=== PATIENT | female | born 1985 | race Caucasian/White ===

== ENCOUNTER 2021-05-11 09:15 | Outpatient (REF) | payer OTHER, SELFPAY ==
[2021-05-11 12:12] LABS: Alanine Aminotransferase 19 U/L (0-31); Albumin Level 4.4 g/dL (3.5-5.0); Alkaline Phosphatase 55 U/L (39-117); Anion Gap 11 (12-20); Aspartate Amino Transferase 23 U/L (5-31); Bilirubin Total 0.4 mg/dL (0.0-1.0); Blood Urea Nitrogen 7 mg/dL (9-16); Carbon Dioxide 22 mmol/L (22-29); Chloride 106 mmol/L (96-108); Cholesterol 178 mg/dL; Estimated Glomerular Filt Rate > 60; Glucose Fasting 94 mg/dL (60-99); HDL Cholesterol 58 mg/dL; LDL Cholesterol Calculated 102 mg/dl; Potassium 3.8 mmol/L (3.3-5.1); Sodium 135 mmol/L (135-145); Total Protein 6.5 g/dL (6.5-8.0); Triglycerides 93 mg/dL
[2021-05-11 12:33] LABS: TSH reflex Free T4 1.51 uIU/mL (0.32-4.0)
== END 2021-05-11 09:16 | disposition home or self-care (01) ==
LOC: HO.WFDLDS 09:15
PROVIDERS: Visit Provider Family Medicine
DX: Z00.00 Encounter for general adult medical examination without abnormal findings (principal)
CPT/HCPCS: 36415; 80053; 80061; 84443

== ENCOUNTER 2021-07-01 10:17 | Outpatient (REF) | payer OTHER, SELFPAY ==
[2021-07-01 11:54] LABS: Influenza A PCR NEGATIVE (Negative); Influenza B PCR NEGATIVE (Negative); Resp Syncy Virus RNA Qual PCR NEGATIVE (Negative); SARS COV2 PCR INHOUSE NEGATIVE (Negative)
== END 2021-07-01 10:18 | disposition home or self-care (01) ==
LOC: HO.LAB 10:17
PROVIDERS: Visit Provider Family Medicine
DX: Z20.822 Contact with and (suspected) exposure to COVID-19 (principal); R09.81 Nasal congestion; R53.83 Other fatigue
CPT/HCPCS: 0241U; 36415

== ENCOUNTER 2021-08-11 14:42 | Outpatient (REF) | payer OTHER, SELFPAY ==
[2021-08-11 21:51] LABS: Influenza A PCR NEGATIVE (Negative); Influenza B PCR NEGATIVE (Negative); Resp Syncy Virus RNA Qual PCR NEGATIVE (Negative); SARS COV2 PCR INHOUSE POSITIVE (Negative)
== END 2021-08-11 14:43 | disposition home or self-care (01) ==
LOC: HO.LAB 14:42
PROVIDERS: Visit Provider Hospitalist
DX: Z20.822 Contact with and (suspected) exposure to COVID-19 (principal)
CPT/HCPCS: 0241U

== ENCOUNTER 2021-11-21 18:20 | Emergency (ER) | payer OTHER, SELFPAY ==
--- NOTE | ~2021-11-21 | CT_ITS ---
EXAMINATION: CT HEAD WITHOUT CONTRAST CLINICAL INFORMATION: Possible seizure COMPARISON: None TECHNIQUE: Contiguous axial imaging was performed from the skull base to vertex without intravenous administration of contrast. This CT examination was performed using dose optimization techniques as appropriate, variously including the following: *Automated exposure control *Adjustment of mA and/or kV according to patient size (this includes techniques or standardized protocols for targeted exams where dose is matched to indication/reason for exam; i.e. extremities or head) *Use of iterative reconstruction technique DLP: 725 mGy-cm FINDINGS: There is no evidence of acute intracranial hemorrhage or territorial infarction. No abnormal mass effect or midline shift is seen. Matos to white matter differentiation is well preserved. No extra-axial fluid collections are identified. The ventricles are normal in size. Subtle patchy hypodensity questioned within the right frontal subcortical white matter The osseous structures and soft tissues are normal. The mastoid air cells and visualized portions of the paranasal sinuses are well aerated. CT/CT head/brain wo con IMPRESSION: Questionable right frontal subcortical white matter patchy hypodensity is entirely nonspecific on the basis of this exam, and potentially even artifactual. Recommend MRI brain without and with contrast for further evaluation. Exam otherwise unremarkable.
--- NOTE | ~2021-11-21 | MR_ITS ---
MR BRAIN WITHOUT AND WITH IV CONTRAST CLINICAL INFORMATION: Frontal lesion. COMPARISON: CT head 11/21/2021. TECHNIQUE: Multiplanar, multisequence MRI of the brain was obtained before and after the intravenous administration of 7 mL of Gadavist. FINDINGS: There is no pathologic intracranial enhancement. There are mild to moderate T2 signal changes scattered throughout the supratentorial white matter and central jerri which are nonspecific and that correlate with the recent CT finding. There is no hydrocephalus, extra-axial surface collection, or herniation. The major flow voids at the skull base are preserved. There is no acute infarct on diffusion-weighted imaging. There is no intracranial hemorrhage on the gradient recalled echo acquisition. The midline structures are normal. The cerebellar tonsils are normally positioned. The cerebellum and brainstem are normal. The craniocervical junction is normal. Osseous marrow signal intensity is homogenous. The visualized soft tissues are unremarkable. MR/MR head/brain wo/w con IMPRESSION: There are mild to moderate T2 signal changes scattered throughout the supratentorial white matter and central jerri which are nonspecific and that correlate with the recent CT finding. There is no pathologic enhancement intracranially and there are no acute infarcts.
[2021-11-21 20:20] VITALS: BP 108/55; PULSE 103; RESP 17; TEMP 37; O2SAT 100; BMI 22.5
[2021-11-21 21:09] VITALS: BP 110/69; PULSE 99; RESP 16; TEMP 36.8; O2SAT 100
--- NOTE | 2021-11-21 21:12 | ED_ITS ---
HPI - Seizure General Chief Complaint: Seizure <Luis Joseph MD - Last Filed: 11/22/21 06:44> Stated Complaint: Seizure like activity on 11/19 <Luis Joseph MD - Last Filed: 11/22/21 06:44> Time Seen by Provider: 11/21/21 21:12 <Luis Joseph MD - Last Filed: 11/22/21 06:44> Source: patient <Luis Joseph MD - Last Filed: 11/22/21 06:44> Mode of arrival: ambulatory <Luis Joseph MD - Last Filed: 11/22/21 06:44> Limitations: no limitations <Luis Joseph MD - Last Filed: 11/22/21 06:44> History of Present Illness HPI Narrative: Patient with history of seizures but has not had for years. Patient feels rigid with getting up. She has been feeling rigid since getting COVID. Patient has been positive twice for COVID. Patient went to [facility] for passing out. According to her significant other she had a syncopal event followed by being rigid lasting 3-4 minutes followed by another 30 minutes before she could answer her questions. At [facility] she did not have a CT scan. She had blood work and urine but no other tests. 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 <Luis Joseph MD - Last Filed: 11/22/21 06:44> MD complaint: seizure <Luis Joseph MD - Last Filed: 11/22/21 06:44> Onset (ago): day(s) <Luis Joseph MD - Last Filed: 11/22/21 06:44> Description of Episode: loss of consciousness and tonic-clonic movement <Luis Joseph MD - Last Filed: 11/22/21 06:44> Seizure History: Yes <Luis Joseph MD - Last Filed: 11/22/21 06:44> Place: Home <Luis Joseph MD - Last Filed: 11/22/21 06:44> Associated symptoms: chest pain <Luis Joseph MD - Last Filed: 11/22/21 06:44> Related Data Home Medications: Previous Rx's Medication Instructions Recorded gabapentin 400 mg capsule 400 mg PO TID 90 Days #270 cap 09/29/21 atenolol 25 mg tablet 25 mg PO BID 90 Days #135 tab 10/05/21 escitalopram oxalate 20 mg tablet 20 mg PO DAILY 90 Days #90 tab 10/19/21 (Lexapro) trazodone 50 mg tablet 50 mg PO BEDTIME PRN 90 Days #30 10/19/21 tab varenicline 1 mg tablet See Rx Instructions PO BID 28 Days 11/16/21 #56 tab quetiapine 50 mg tablet (Seroquel) 50 mg PO BEDTIME #30 tab 11/21/21 <Luis Joseph MD - Last Filed: 11/22/21 06:44> Allergies/Adverse Reactions: Allergies Allergy/AdvReac Type Severity Reaction Status Date / Time Sulfa (Sulfonamide Allergy HIVES Verified 08/11/21 13:55 Antibiotics) <Luis Joseph MD - Last Filed: 11/22/21 06:44> Review of Systems Constitutional: Constitutional: Reports no additional constitutional complaints <Luis Joseph MD - Last Filed: 11/22/21 06:44> Eyes: Eyes: Reports no additional eye complaints <Luis Joseph MD - Last Filed: 11/22/21 06:44> ENT: Denies dizziness <Luis Joseph MD - Last Filed: 11/22/21 06:44> Cardiovascular: Cardiovascular: Reports no additional cardiovascular complaints <Luis Joseph MD - Last Filed: 11/22/21 06:44> Respiratory: Respiratory: Reports as per HPI <Luis Joseph MD - Last Filed: 11/22/21 06:44> Gastrointestinal: Gastrointestinal: Reports no additional gastrointestinal complaints <Luis Joseph MD - Last Filed: 11/22/21 06:44> Genitourinary: Genitourinary: Reports no additional female genitourinary complaints <Luis Joseph MD - Last Filed: 11/22/21 06:44> Musculoskeletal: Musculoskeletal: Reports no additional musculoskeletal compla ints <Luis Joseph MD - Last Filed: 11/22/21 06:44> Integumentary/Breasts: Skin/Breast: Denies rash <Luis Joseph MD - Last Filed: 11/22/21 06:44> Neurologic: Reports system reviewed and no additional complaints, except as documented, Denies dizziness and Denies Sensory deficit (Neuro) <Luis Joseph MD - Last Filed: 11/22/21 06:44> Psychiatric: Psychiatric: Denies anxiety <Luis Joseph MD - Last Filed: 11/22/21 06:44> [facility] Past Medical History Medical History: Medical History POTS (postural orthostatic tachycardia syndrome) <Luis Joseph MD - Last Filed: 11/22/21 06:44> Surgical History: Surgical History No pertinent past surgical history <Luis Joseph MD - Last Filed: 11/22/21 06:44> Social History Social History: Social History Housing: House Patient Tobacco Use Status: Current everyday Tobacco user Cigarettes Per Day: 15 Advance Directives: No Advance Directives Information Provided: No Patient : No Current occupational status: unemployed <Luis Joseph MD - Last Filed: 11/22/21 06:44> Physical Exam Vital Signs: Vital Signs: Last Vital Signs Temp 98.5 F 11/22/21 01:02 Pulse 82 11/22/21 06:51 Resp 19 11/22/21 06:51 BP 107/63 11/22/21 04:43 Pulse Ox 96 11/22/21 06:51 BMI result Body Mass Index 22.5 <Luis Joseph MD - Last Filed: 11/22/21 06:44> Vital Signs: Last Vital Signs Temp 98.5 F 11/22/21 01:02 Pulse 82 11/22/21 06:51 Resp 19 11/22/21 06:51 BP 107/63 11/22/21 04:43 Pulse Ox 96 11/22/21 06:51 BMI result Body Mass Index 22.5 <Alice Carbajal DO - Last Filed: 11/22/21 09:31> Const: Other: anxious <Luis Joseph MD - Last Filed: 11/22/21 06:44> General: healthy appearing <Luis Joseph MD - Last Filed: 11/22/21 06:44> Nutritional Appearance: average body habitus <Luis Joseph MD - Last Filed: 11/22/21 06:44> Orientation/consciousness: oriented to person and patient oriented x3 <Luis Joseph MD - Last Filed: 11/22/21 06:44> Limitations: no limitations <Luis Joseph MD - Last Filed: 11/22/21 06:44> HEENT: Head: Yes normal to inspection <Luis Joseph MD - Last Filed: 11/22/21 06:44> Ears: external ears normal <Luis Joseph MD - Last Filed: 11/22/21 06:44> General nose exam: Normal external nose present <MD Barbara Hudson Last Filed: 11/22/21 06:44> Mouth: Normal oral and palatal mucosa present and oropharynx normal <MD Barbara Hudson Last Filed: 11/22/21 06:44> Throat: Yes posterior oropharynx normal <Luis Joseph MD - Last Filed: 11/22/21 06:44> Eyes: General: appearance normal, both eyes and all related structures <Luis Joseph MD - Last Filed: 11/22/21 06:44> Neck: Other: supple <Luis Joseph MD - Last Filed: 11/22/21 06:44> Neck: Yes normal visual inspection <Luis Joseph MD - Last Filed: 11/22/21 06:44> Chest: Chest palpation & inspection: normal inspection of the chest <MD Barbara Hudson Last Filed: 11/22/21 06:44> Resp: Auscultation: clear to auscultation bilaterally <MD Barbara Hudson Last Filed: 11/22/21 06:44> Cardio: Jugular venous distension: no JVD <MD Barbara Hudson Last Filed: 11/22/21 06:44> Rate: regular rate <MD Barbara Hudson Last Filed: 11/22/21 06:44> Rhythm: regular rhythm <Luis Joseph MD - Last Filed: 11/22/21 06:44> Heart sounds: S1 normal heart sound present and S2 normal heart sound present <Luis Joseph MD - Last Filed: 11/22/21 06:44> GI: Inspection: Yes normal to inspection <Luis Joseph MD - Last Filed: 11/22/21 06:44> Palpation (GI): Soft to palpation, nontender and No hepatosplenomegaly present <Luis Joseph MD - Last Filed: 11/22/21 06:44> Auscultation: normal bowel sounds <Luis Joseph MD - Last Filed: 11/22/21 06:44> : General: Yes no CVA tenderness <Luis Joseph MD - Last Filed: 11/22/21 06:44> Back/Spine/Pelvis: Back: no CVA tenderness <Luis Joseph MD - Last Filed: 11/22/21 06:44> Skin: General skin exam: no rashes or lesions noted <Luis Joseph MD - Last Filed: 11/22/21 06:44> Neuro: General: oriented to person and patient oriented x3 <Luis Joseph MD - Last Filed: 11/22/21 06:44> Cranial nerves: Yes CN's II-XII intact bilaterally <Luis Joseph MD - Last Filed: 11/22/21 06:44> Motor exam (neuro): 5/5 motor strength present throughout <Luis Joseph MD - Last Filed: 11/22/21 06:44> Sensory Exam: No Sensory deficit (Neuro) <Luis Joseph MD - Last Filed: 11/22/21 06:44> Extrem: General: Yes normal to inspection <Luis Joseph MD - Last Filed: 11/22/21 06:44> Psych: Other: anxious <Luis Joseph MD - Last Filed: 11/22/21 06:44> Course Course Course Narrative: ADDENDUM: MRI nonspecific reviewed with Neurology Mook can follow up outpatient - order lyme, ESR, MICHAEL. Patient at baseline, no seizures while here 14 hours. Physician observation ended at 928am. Patient seen and cleared after MRI. Plan is to follow up as outpatient. NAD, CV RRR, Neuro intact. Disposition is for home. <Alice Carbajal DO - Last Filed: 11/22/21 09:31> Reevaluation(s) Reevaluation #1: Patient placed in physician observation at 5am The indication for observation is that the patient is awaiting MRI to evaluate frontal lesion. At this time the patient is well developed well nourished, lungs clear, CV RRR, abd nontender, neuro is intact there has been no seizure activity. Labs normal. <Luis Joseph MD - Last Filed: 11/22/21 06:44> Time: 06:44 <Luis Joseph MD - Last Filed: 11/22/21 06:44> MDM - Seizure Lab Data Result diagrams: : 11/21/21 22:04 11/21/21 22:04 <Luis Joseph MD - Last Filed: 11/22/21 06:44> Labs: Lab Results 11/21/21 11/21/21 11/21/21 Range/Units 22:04 22:04 22:04 WBC 10.8 (4.8-10.8) X10*3/uL RBC 3.80 L (4.20-5.50) X10*6/uL Hgb 12.1 (12.0-16.0) g/dl Hct 36.4 L (37.0-47.0) % MCV 95.8 (80.0-98.0) fL MCH 31.8 (27.0-33.0) pg MCHC 33.2 (31.0-35.0) g/dl RDW 13.1 (11.0-16.0) % Plt Count 243 (160-400) X10*3/uL MPV 9.7 (9.4-12.3) fL Immature Gran % (Auto) 0.3 (0.0-0.4) % Neut % (Auto) 67.9 (45-73) % Lymph % (Auto) 25.0 (20-40) % Meade % (Auto) 5.8 (2-11) % Eos % (Auto) 0.5 (0-4) % Baso % (Auto) 0.5 (0-2) % Lymph # (Auto) 2.7 (1.2-4.9) X10*3/uL Meade # (Auto) 0.6 (0.1-1.2) X10*3/uL Eos # (Auto) 0.1 (0.0-0.4) X10*3/uL Baso # (Auto) 0.1 (0.0-0.2) X10*3/uL Abs Immat Gran (auto) 0.03 (0.00-0.03) X10*3/uL Absolute Neuts (auto) 7.3 (2.0-8.3) x10*3/uL Absolute Nucleated RBC 0.000 (0.0-0.012) X10*3/uL Nucleated RBC % (auto) 0.0 (0.0-0.2) /100WBC Sodium 138 (135-145) mmol/L Potassium 4.4 (3.3-5.1) mmol/L Chloride 107 (96-108) mmol/L Carbon Dioxide 23 (22-29) mmol/L Anion Gap 12 (12-20) BUN 10 (9-16) mg/dL Creatinine 0.75 (0.5-1.4) mg/dL Estim Creat Clear Calc 112.1 Estimated GFR > 60 Random Glucose 80 (60-115) mg/dL Calcium 9.2 (8.4-10.2) mg/dL Total Creatine Kinase 110 (26-140) U/L Troponin I High Sens < 3.5 (<3.5-17.0) ng/L Urine Color Urine Appearance Urine pH (5.0-8.0) Ur Specific [place] (1.005-1.025) Urine Protein (NEG-TRACE) MG/DL Urine Glucose (UA) (NEG) MG/DL Urine Ketones (NEG) MG/DL Urine Blood (NEG) Urine Nitrite (NEG) Ur Leukocyte Esterase (NEG) Urine Test (NEGATIVE) Urine Opiates Screen (Not Detect) Urine Fentanyl Screen (Not Detect) Ur Barbiturates Screen (Not Detect) Ur Phencyclidine Scrn (Not Detect) Ur Amphetamines Screen (Not Detect) U Benzodiazepines Scrn (Not Detect) Urine Cocaine Screen (Not Detect) U Marijuana (THC) Screen (Not Detect) 11/22/21 11/22/21 11/22/21 Range/Units 05:16 05:16 05:16 WBC (4.8-10.8) X10*3/uL RBC (4.20-5.50) X10*6/uL Hgb (12.0-16.0) g/dl Hct (37.0-47.0) % MCV (80.0-98.0) fL MCH (27.0-33.0) pg MCHC (31.0-35.0) g/dl RDW (11.0-16.0) % Plt Count (160-400) X10*3/uL MPV (9.4-12.3) fL Immature Gran % (Auto) (0.0-0.4) % Neut % (Auto) (45-73) % Lymph % (Auto) (20-40) % Meade % (Auto) (2-11) % Eos % (Auto) (0-4) % Baso % (Auto) (0-2) % Lymph # (Auto) (1.2-4.9) X10*3/uL Meade # (Auto) (0.1-1.2) X10*3/uL Eos # (Auto) (0.0-0.4) X10*3/uL Baso # (Auto) (0.0-0.2) X10*3/uL Abs Immat Gran (auto) (0.00-0.03) X10*3/uL Absolute Neuts (auto) (2.0-8.3) x10*3/uL Absolute Nucleated RBC (0.0-0.012) X10*3/uL Nucleated RBC % (auto) (0.0-0.2) /100WBC Sodium (135-145) mmol/L Potassium (3.3-5.1) mmol/L Chloride (96-108) mmol/L Carbon Dioxide (22-29) mmol/L Anion Gap (12-20) BUN (9-16) mg/dL Creatinine (0.5-1.4) mg/dL Estim Creat Clear Calc Estimated GFR Random Glucose (60-115) mg/dL Calcium (8.4-10.2) mg/dL Total Creatine Kinase (26-140) U/L Troponin I High Sens (<3.5-17.0) ng/L Urine Color YELLOW Urine Appearance HAZY Urine pH 6.0 (5.0-8.0) Ur Specific [place] >= 1.030 H (1.005-1.025) Urine Protein NEG (NEG-TRACE) MG/DL Urine Glucose (UA) NEG (NEG) MG/DL Urine Ketones NEG (NEG) MG/DL Urine Blood NEG (NEG) Urine Nitrite NEG (NEG) Ur Leukocyte Esterase NEG (NEG) Urine Test NEGATIVE (NEGATIVE) Urine Opiates Screen Not Detected (Not Detect) Urine Fentanyl Screen Not Detected (Not Detect) Ur Barbiturates Screen Not Detected (Not Detect) Ur Phencyclidine Scrn Not Detected (Not Detect) Ur Amphetamines Screen Not Detected (Not Detect) U Benzodiazepines Scrn Not Detected (Not Detect) Urine Cocaine Screen Not Detected (Not Detect) U Marijuana (THC) Screen POSITIVE H (Not Detect) <Luis Joseph MD - Last Filed: 11/22/21 06:44> Lab Results 11/21/21 11/21/21 11/21/21 Range/Units 22:04 22:04 22:04 WBC 10.8 (4.8-10.8) X10*3/uL RBC 3.80 L (4.20-5.50) X10*6/uL Hgb 12.1 (12.0-16.0) g/dl Hct 36.4 L (37.0-47.0) % MCV 95.8 (80.0-98.0) fL MCH 31.8 (27.0-33.0) pg MCHC 33.2 (31.0-35.0) g/dl RDW 13.1 (11.0-16.0) % Plt Count 243 (160-400) X10*3/uL MPV 9.7 (9.4-12.3) fL Immature Gran % (Auto) 0.3 (0.0-0.4) % Neut % (Auto) 67.9 (45-73) % Lymph % (Auto) 25.0 (20-40) % [place] % (Auto) 5.8 (2-11) % Eos % (Auto) 0.5 (0-4) % Baso % (Auto) 0.5 (0-2) % Lymph # (Auto) 2.7 (1.2-4.9) X10*3/uL Meade # (Auto) 0.6 (0.1-1.2) X10*3/uL Eos # (Auto) 0.1 (0.0-0.4) X10*3/uL Baso # (Auto) 0.1 (0.0-0.2) X10*3/uL Abs Immat Gran (auto) 0.03 (0.00-0.03) X10*3/uL Absolute Neuts (auto) 7.3 (2.0-8.3) x10*3/uL Absolute Nucleated RBC 0.000 (0.0-0.012) X10*3/uL Nucleated RBC % (auto) 0.0 (0.0-0.2) /100WBC Sodium 138 (135-145) mmol/L Potassium 4.4 (3.3-5.1) mmol/L Chloride 107 (96-108) mmol/L Carbon Dioxide 23 (22-29) mmol/L Anion Gap 12 (12-20) BUN 10 (9-16) mg/dL Creatinine 0.75 (0.5-1.4) mg/dL Estim Creat Clear Calc 112.1 Estimated GFR > 60 Random Glucose 80 (60-115) mg/dL Calcium 9.2 (8.4-10.2) mg/dL Total Creatine Kinase 110 (26-140) U/L Troponin I High Sens < 3.5 (<3.5-17.0) ng/L Urine Color Urine Appearance Urine pH (5.0-8.0) Ur Specific [place] (1.005-1.025) Urine Protein (NEG-TRACE) MG/DL Urine Glucose (UA) (NEG) MG/DL Urine Ketones (NEG) MG/DL Urine Blood (NEG) Urine Nitrite (NEG) Ur Leukocyte Esterase (NEG) Urine Test (NEGATIVE) Urine Opiates Screen (Not Detect) Urine Fentanyl Screen (Not Detect) Ur Barbiturates Screen (Not Detect) Ur Phencyclidine Scrn (Not Detect) Ur Amphetamines Screen (Not Detect) U Benzodiazepines Scrn (Not Detect) Urine Cocaine Screen (Not Detect) U Marijuana (THC) Screen (Not Detect) 11/22/21 11/22/21 11/22/21 Range/Units 05:16 05:16 05:16 WBC (4.8-10.8) X10*3/uL RBC (4.20-5.50) X10*6/uL Hgb (12.0-16.0) g/dl Hct (37.0-47.0) % MCV (80.0-98.0) fL MCH (27.0-33.0) pg MCHC (31.0-35.0) g/dl RDW (11.0-16.0) % Plt Count (160-400) X10*3/uL MPV (9.4-12.3) fL Immature Gran % (Auto) (0.0-0.4) % Neut % (Auto) (45-73) % Lymph % (Auto) (20-40) % [place] % (Auto) (2-11) % Eos % (Auto) (0-4) % Baso % (Auto) (0-2) % Lymph # (Auto) (1.2-4.9) X10*3/uL [place] # (Auto) (0.1-1.2) X10*3/uL Eos # (Auto) (0.0-0.4) X10*3/uL Baso # (Auto) (0.0-0.2) X10*3/uL Abs Immat Gran (auto) (0.00-0.03) X10*3/uL Absolute Neuts (auto) (2.0-8.3) x10*3/uL Absolute Nucleated RBC (0.0-0.012) X10*3/uL Nucleated RBC % (auto) (0.0-0.2) /100WBC Sodium (135-145) mmol/L Potassium (3.3-5.1) mmol/L Chloride (96-108) mmol/L Carbon Dioxide (22-29) mmol/L Anion Gap (12-20) BUN (9-16) mg/dL Creatinine (0.5-1.4) mg/dL Estim Creat Clear Calc Estimated GFR Random Glucose (60-115) mg/dL Calcium (8.4-10.2) mg/dL Total Creatine Kinase (26-140) U/L Troponin I High Sens (<3.5-17.0) ng/L Urine Color YELLOW Urine Appearance HAZY Urine pH 6.0 (5.0-8.0) Ur Specific [place] >= 1.030 H (1.005-1.025) Urine Protein NEG (NEG-TRACE) MG/DL Urine Glucose (UA) NEG (NEG) MG/DL Urine Ketones NEG (NEG) MG/DL Urine Blood NEG (NEG) Urine Nitrite NEG (NEG) Ur Leukocyte Esterase NEG (NEG) Urine Test NEGATIVE (NEGATIVE) Urine Opiates Screen Not Detected (Not Detect) Urine Fentanyl Screen Not Detected (Not Detect) Ur Barbiturates Screen Not Detected (Not Detect) Ur Phencyclidine Scrn Not Detected (Not Detect) Ur Amphetamines Screen Not Detected (Not Detect) U Benzodiazepines Scrn Not Detected (Not Detect) Urine Cocaine Screen Not Detected (Not Detect) U Marijuana (THC) Screen POSITIVE H (Not Detect) <Alice Carbajal DO - Last Filed: 11/22/21 09:31> Imaging Data CT scan - head: Radiologist's impression: IMPRESSION: Questionable right frontal subcortical white matter patchy hypodensity is entirely nonspecific on the basis of this exam, and potentially even artifactual. Recommend MRI brain without and with contrast for further evaluation. Exam otherwise unremarkable. <Luis Joseph MD - Last Filed: 11/22/21 06:44> ECG Data Attestation: I personally reviewed and interpreted this ECG as follows: <Luis Joseph MD - Last Filed: 11/22/21 06:44> Interpretation: sinus 100, no st or twave changes <Luis Joseph MD - Last Filed: 11/22/21 06:44> Discharge Plan Discharge Clinical Impression: Brief loss of consciousness, Abnormal MRI Syncope Qualifiers: Syncope type: unspecified Qualified Code(s): R55 - Syncope and collapse <Luis Joseph MD - Last Filed: 11/22/21 06:44> Patient Disposition: Home, Self-Care <Luis Joseph MD - Last Filed: 11/22/21 06:44> Instructions: Syncope (ED) <Luis Joseph MD - Last Filed: 11/22/21 06:44> Additional Instructions: return to ED for any worsening symptoms or concerns your MRI has nonspecific changes to it this was reviewed with our Neurologist - they can see you on outpatient basis, inflammatory labs were sent off prior to discharge please follow up with your doctor you should not swim alone, drive, cook over an open flame <Luis Joseph MD - Last Filed: 11/22/21 06:44> Prescriptions: No Action gabapentin 400 mg capsule 400 mg PO TID 90 Days Qty: 270 3RF atenolol 25 mg tablet 25 mg PO BID 90 Days Qty: 135 3RF Rx Instructions: TAKE 1 TABLET IN THE MORNING AND 1/2 TABLET IN THE NIGHT escitalopram oxalate [Lexapro] 20 mg tablet 20 mg PO DAILY 90 Days Qty: 90 2RF trazodone 50 mg tablet 50 mg PO BEDTIME PRN (Reason: sleep) 90 Days Qty: 30 1RF varenicline 1 mg tablet See Rx Instructions PO BID 28 Days Qty: 56 1RF Rx Instructions: Start 0.5mg PO daily x 3 days then 0.5mg PO BID x 4 days then 1mg PO BID PO 2 times a day; quetiapine [Seroquel] 50 mg tablet 50 mg PO BEDTIME Qty: 30 1RF <Luis Joseph MD - Last Filed: 11/22/21 06:44> Referrals: Robert Delvalle MD [Physician] - 1 week <Luis Joseph MD - Last Filed: 11/22/21 06:44> Stand Alone Forms: Work/School Release <Luis Joseph MD - Last Filed: 11/22/21 06:44>
--- NOTE | 2021-11-21 21:22 | ECG_ITS ---
Test Reason : SEIZURR Blood Pressure : / mmHG Vent. Rate : 098 BPM Atrial Rate : 098 BPM P-R Int : 116 ms QRS Dur : 100 ms QT Int : 370 ms P-R-T Axes : 072 017 049 degrees QTc Int : 472 ms Normal sinus rhythm Normal ECG No previous ECGs available Referred By: Luis Joseph Electronically Signed By:Johnathon Melgoza
[2021-11-21] MEDS: 0.9 % Sodium Chloride 1,000 ML 999 ML IVCONT (22:05)
[2021-11-21] MEDS: Escitalopram Oxalate 20 MG TABLET PO (22:05)
[2021-11-21] MEDS: QUEtiapine Fumarate 50 MG TABLET PO (22:05)
[2021-11-21 22:12] VITALS: BP 111/66; PULSE 98
[2021-11-21 22:14] VITALS: BP 127/83; PULSE 107
[2021-11-21 22:20] LABS: MANUAL DIFF FLAG NO
[2021-11-21 22:24] LABS: Basophils Absolute Auto 0.1 X10*3/uL (0.0-0.2); Basophils Percent Auto 0.5 % (0-2); Eosinophils Absolute Auto 0.1 X10*3/uL (0.0-0.4); Eosinophils Percent Auto 0.5 % (0-4); Hematocrit 36.4 % (37.0-47.0); Hemoglobin 12.1 g/dl (12.0-16.0); Imm Gran Abs Auto 0.03 X10*3/uL (0.00-0.03); Imm Gran Pct Auto 0.3 % (0.0-0.4); Lymphocytes Absolute Auto 2.7 X10*3/uL (1.2-4.9); Mean Corpuscular HGB Conc 33.2 g/dl (31.0-35.0); Mean Corpuscular Hemoglobin 31.8 pg (27.0-33.0); Mean Corpuscular Volume 95.8 fL (80.0-98.0); Mean Platelet Volume 9.7 fL (9.4-12.3); Monocytes Absolute Auto 0.6 X10*3/uL (0.1-1.2); Monocytes Percent Auto 5.8 % (2-11); Neutrophils Absolute Auto 7.3 x10*3/uL (2.0-8.3); Neutrophils Percent Auto 67.9 % (45-73); Platelet Count 243 X10*3/uL (160-400); Red Cell Distribution Width 13.1 % (11.0-16.0); White Blood Count 10.8 X10*3/uL (4.8-10.8)
[2021-11-21 22:40] LABS: Anion Gap 12 (12-20); Blood Urea Nitrogen 10 mg/dL (9-16); Calcium 9.2 mg/dL (8.4-10.2); Carbon Dioxide 23 mmol/L (22-29); Chloride 107 mmol/L (96-108); Creatinine Clr Calc Pharmacy 112.1; Estimated Glomerular Filt Rate > 60; Glucose Random 80 mg/dL (60-115); Potassium 4.4 mmol/L (3.3-5.1); Sodium 138 mmol/L (135-145)
[2021-11-21 22:47] LABS: Troponin-I High Sensitivity < 3.5 ng/L (<3.5-17.0)
[2021-11-22] MEDS: 0.9 % Sodium Chloride 1,000 ML 999 ML IVCONT (00:02)
[2021-11-22 01:02] VITALS: BP 110/59; PULSE 94; RESP 20; TEMP 36.9; O2SAT 97
[2021-11-22 02:34] VITALS: BP 102/54; PULSE 84; RESP 18; O2SAT 98
[2021-11-22 04:43] VITALS: BP 107/63; PULSE 76; RESP 19; O2SAT 99
[2021-11-22 05:21] LABS: Appearance Urine HAZY; Color Urine YELLOW; Glucose Urine UA NEG (NEG); Leukocyte Esterase Urine NEG (NEG); Nitrite Urine NEG (NEG); Specific Gravity - Urine >= 1.030 (1.005-1.025); Urine Blood NEG (NEG); Urine Ketones NEG (NEG); Urine Protein NEG (NEG-TRACE)
[2021-11-22 05:23] LABS: UPreg QC Valid YES; Urine Pregnancy NEGATIVE (NEGATIVE)
[2021-11-22 05:38] LABS: Amphetamine Screen Urine Not Detected (Not Detect); Barbiturates, Urine Not Detected (Not Detect); Benzodiazepines Screen Urine Not Detected (Not Detect); Cannabinoid Screen Urine POSITIVE (Not Detect); Cocaine Screen Urine Not Detected (Not Detect); Fentanyl, urine Not Detected (Not Detect); Opiate Screen Urine Not Detected (Not Detect); Phencyclidine Screen Urine Not Detected (Not Detect)
[2021-11-22 06:51] VITALS: PULSE 82; RESP 19; O2SAT 96
[2021-11-22 10:08] LABS: Erythrocyte Sedimentation Rate 5 MM/HR (0-20)
[2021-11-23 21:16] LABS: Lyme Abs Screen <0.90 index
[2021-11-25 14:52] LABS: Anti Nuclear Antibody Screen NEGATIVE (NEGATIVE)
== END 2021-11-22 09:40 | disposition home or self-care (01) ==
PROVIDERS: Emergency Medicine; Emergency Provider Emergency Medicine; PCP Family Medicine
DX: R55 Syncope and collapse (principal); R93.0 Abnormal findings on diagnostic imaging of skull and head, not elsewhere classified; F31.9 Bipolar disorder, unspecified; F43.10 Post-traumatic stress disorder, unspecified; G93.49 Other encephalopathy; F41.9 Anxiety disorder, unspecified; I49.8 Other specified cardiac arrhythmias; I73.00 Raynaud's syndrome without gangrene; F17.200 Nicotine dependence, unspecified, uncomplicated; F12.90 Cannabis use, unspecified, uncomplicated; Z79.899 Other long term (current) drug therapy
CPT/HCPCS: 36415; 70450; 70553; 80048; 80307; 81003; 81025; 82550; 84484; 85025; 85652; 86038; 86039; 86617; 86618; 93005; 96361; 96374; 99284; 99285; A9585

== ENCOUNTER 2021-11-25 22:44 | Emergency (ER) | payer OTHER, SELFPAY ==
--- NOTE | ~2021-11-25 | CT_ITS ---
EXAMINATION: CT ANGIOGRAM HEAD AND NECK CLINICAL INFORMATION: Seizure. Fall. COMPARISON: MRI head dated 11/22/2021. CT head dated 11/21/2021. TECHNIQUE: Unenhanced CT examination of the head was performed initially. Test bolus sequences followed by intravenous administration 100 mL of Omnipaque 300 intravenous contrast. Helical imaging was performed in the axial plane from the mediastinum to the skull vertex. Delayed postcontrast imaging of the head was also performed. The data was processed at the lab animal technologist's workstation for generation of MIP sequences. Three-dimensional volume rendered reformatted images were also generated at an offline 3-D workstation. This CT examination was performed using dose optimization techniques as appropriate, variously including the following: *Automated exposure control *Adjustment of mA and/or kV according to patient size (this includes techniques or standardized protocols for targeted exams where dose is matched to indication/reason for exam; i.e. extremities or head) *Use of iterative reconstruction technique The degree of stenosis determined by NASCET criteria. DLP: 2496 mGy-cm FINDINGS: SOFT TISSUES AND LUNG APICES: No overt abnormality is appreciated. CTA NECK: The aortic arch has a classic configuration and the major arch vessel origins are non-stenotic. Left vertebral artery is dominant. Intradural right vertebral artery shows a PICA variant, predominantly terminating in the posterior inferior cerebellar artery, with diminutive V4 segment. Vertebral arteries are co-dominant and both vertebral origins are widely patent. Both common carotid arteries are normal in course and caliber. Both internal carotid arteries demonstrate mild atherosclerotic plaque without significant stenosis. CTA HEAD: There is normal opacification of the major intracranial vessels. No acute proximal large vessel occlusion, focal flow-limiting stenosis, or saccular intracranial aneurysm is identified. No abnormal parenchymal enhancement or regional oligemia is visualized. HEAD (noncontrast and delayed): Subtle patchy subcortical and periventricular white matter low-attenuation changes redemonstrated. No intracranial mass, intercerebral edema, hemorrhage, or midline shift is evident. The ventricles and sulci are stable in size and configuration. No extra-axial collections are appreciated. No pathologic intracranial enhancement. Dural sinuses are patent. The paranasal sinuses are well-aerated and clear. CT/CT angio head neck IMPRESSION: * No acute intracranial pathology. * Again seen are nonspecific patchy subcortical and periventricular white matter low-attenuation changes which are nonspecific. * No hemodynamically significant stenosis or large vessel occlusion within the intracranial or extracranial arterial vasculature.
--- NOTE | 2021-11-25 22:47 | ECG_ITS ---
Test Reason : SEIZURE Blood Pressure : / mmHG Vent. Rate : 103 BPM Atrial Rate : 103 BPM P-R Int : 128 ms QRS Dur : 094 ms QT Int : 386 ms P-R-T Axes : 071 050 063 degrees QTc Int : 505 ms Sinus tachycardia Otherwise normal ECG When compared with ECG of 21-NOV-2021 21:54, No significant change was found Referred By: Raegan Rae Electronically Signed By:Johnathon Melgoza
[2021-11-25 22:54] VITALS: BP 83/37; BP 89/37; PULSE 100; PULSE 102; RESP 16; O2SAT 97; BMI 25.0
[2021-11-25] MEDS: 0.9 % Sodium Chloride 1,000 ML 999 ML IV (23:01)
--- NOTE | 2021-11-25 23:10 | PC.NURSE ---
patient a&ox3, pt hypotensive-vitals otherwise stable, ivf started per order, soda fountain operator applied, ekg performed, seizure precautions intact, will continue to monitor.
[2021-11-25 23:30] LABS: MANUAL DIFF FLAG NO
[2021-11-25 23:36] LABS: Basophils Percent Auto 0.2 % (0-2); Eosinophils Absolute Auto 0.1 X10*3/uL (0.0-0.4); Eosinophils Percent Auto 1.5 % (0-4); Hematocrit 32.8 % (37.0-47.0); Hemoglobin 10.6 g/dl (12.0-16.0); Imm Gran Abs Auto 0.01 X10*3/uL (0.00-0.03); Imm Gran Pct Auto 0.2 % (0.0-0.4); Lymphocytes Absolute Auto 1.5 X10*3/uL (1.2-4.9); Lymphocytes Percent Auto 36.9 % (20-40); Mean Corpuscular HGB Conc 32.3 g/dl (31.0-35.0); Mean Corpuscular Hemoglobin 31.7 pg (27.0-33.0); Mean Corpuscular Volume 98.2 fL (80.0-98.0); Mean Platelet Volume 9.5 fL (9.4-12.3); Monocytes Absolute Auto 0.3 X10*3/uL (0.1-1.2); Monocytes Percent Auto 6.6 % (2-11); Neutrophils Absolute Auto 2.2 x10*3/uL (2.0-8.3); Neutrophils Percent Auto 54.6 % (45-73); Platelet Count 189 X10*3/uL (160-400); Red Blood Count 3.34 X10*6/uL (4.20-5.50); Red Cell Distribution Width 12.7 % (11.0-16.0); White Blood Count 4.1 X10*3/uL (4.8-10.8)
[2021-11-25 23:42] LABS: COVID-19 Test Negative (Negative)
[2021-11-25 23:44] LABS: Ethanol < 10 mg/dL
[2021-11-25 23:45] VITALS: BP 98/40; PULSE 81; RESP 14; O2SAT 96
[2021-11-25 23:46] LABS: IDNOW Serial# 16C4AD1C; Influenza A Negative (Negative); Influenza B2 Negative (Negative)
[2021-11-25 23:51] LABS: Alanine Aminotransferase 18 U/L (0-31); Albumin Level 3.5 g/dL (3.5-5.0); Alkaline Phosphatase 61 U/L (39-117); Anion Gap 11 (12-20); Aspartate Amino Transferase 20 U/L (5-31); Bilirubin Total 0.3 mg/dL (0.0-1.0); Blood Urea Nitrogen 4 mg/dL (9-16); Carbon Dioxide 21 mmol/L (22-29); Chloride 109 mmol/L (96-108); Creatinine Clr Calc Pharmacy 102.5; Estimated Glomerular Filt Rate > 60; Glucose Random 102 mg/dL (60-115); Potassium 3.9 mmol/L (3.3-5.1); Sodium 137 mmol/L (135-145); Total Protein 5.3 g/dL (6.5-8.0)
[2021-11-26] VITALS (10 sets, daily range): BP systolic 97–134; BP diastolic 48–87; PULSE 68–125; RESP 13–23; TEMP 36.6–37.2; O2SAT 97–100
--- NOTE | 2021-11-26 00:08 | ED.SEIZURE ---
HPI - Seizure General Chief Complaint: Seizure Stated Complaint: Seizure Activity Time Seen by Provider: 11/25/21 22:47 Source: patient and EMS Mode of arrival: EMS History of Present Illness HPI Narrative: 36-year-old female who is brought in from home via EMS for reports of seizure-like activity and as per EMS patient has had multiple seizures over the last few weeks but is not diagnosed with a seizure disorder ( on review of her documentation these have been characterized as stressed induced seizures and patient acknowledges that she has been under stress). Patient reports that she had an recent MRI of the brain that found a lesion, however on review of documentation she was evaluated here on 11/21 and discharge by Neurology for outpatient follow-up and their assessment was that the MRI was nonspecific and they had requested MICHAEL and Lyme titers which on review of these results are negative. Patient reports that she has POTS and that she is bipolar 1 and that she is currently experiencing a manic episode. Seizure History: Yes Place: Home Related Data Previous Rx's Medication Instructions Recorded gabapentin 400 mg capsule 400 mg PO TID 90 Days #270 cap 09/29/21 atenolol 25 mg tablet 25 mg PO BID 90 Days #135 tab 10/05/21 escitalopram oxalate 20 mg tablet 20 mg PO DAILY 90 Days #90 tab 10/19/21 (Lexapro) trazodone 50 mg tablet 50 mg PO BEDTIME PRN 90 Days #30 10/19/21 tab varenicline 1 mg tablet See Rx Instructions PO BID 28 Days 11/16/21 #56 tab quetiapine 50 mg tablet (Seroquel) 50 mg PO BEDTIME #30 tab 11/21/21 Allergies Allergy/AdvReac Type Severity Reaction Status Date / Time Sulfa (Sulfonamide Allergy HIVES Verified 08/11/21 13:55 Antibiotics) Review of Systems Review of Systems: Pertinent positives and negatives as stated in HPI 10 point review of systems is otherwise negative. [facility] Past Medical History Source: nursing notes reviewed Medical History POTS (postural orthostatic tachycardia syndrome) Surgical History No pertinent past surgical history Social History Social History Housing: House Patient Tobacco Use Status: Current everyday Tobacco user Cigarettes Per Day: 15 Advance Directives: No Patient : No Current occupational status: unemployed Physical Exam Vital Signs: Vital Signs: Last Vital Signs Pulse 99 11/26/21 02:45 Resp 18 11/26/21 02:45 BP 97/48 L 11/26/21 02:45 Pulse Ox 97 11/26/21 02:45 BMI result Body Mass Index 25.0 VITAL SIGNS: Reviewed. GENERAL: Well developed, well nourished, in no acute distress. HEAD: Normocephalic/atraumatic EYES: PERRLA, EOMI, pupils are not pinpoint EARS: Ext canals without abnormality OROPHARYNX: no oral lesions noted, posterior pharynx clear LUNGS: Normal breath sounds. SpO2<98> CARDIOVASCULAR: Regular rate and rhythm without noted murmurs, no JVD or lower extremity edema. ABDOMEN: Soft, non-tender, non-distended with bowel sounds. MUSCULOSKELETAL: No tenderness, deformities, or effusions noted on gross inspection. EXTREMITIES: No cyanosis, clubbing or edema. SKIN: Inspection of the skin reveals no rashes, ulcerations, jaundice, pallor, or petechiae. NEUROLOGIC: Alert and oriented x 4. Strength and sensation to light touch were grossly intact x 4, Speech is slow, no focal deficits noted. Course Course Course Narrative: 36-year-old female with history and clinical presentation suggestive of seizure without focal deficits and recently evaluated by Neurology. Will evaluate for evidence infection, anemia, electrolyte disturbance, and on review of EKG which shows QTC 505 and patient noted to be mildly hypotensive raising concerns for possible medication ingestion. Patient denies suicidal ideation but states that she is bipolar 1 and currently in a manic state. Patient received 5 mg of Versed which better explains her hypotension and current rate of speech. Review of all investigations demonstrates mild cytopenia, inflammatory markers such as ESR/ CRP are within normal limits, there are no electrolyte abnormalities. And on review of all CT imaging there is redemonstration the plaques, patient does not have any focal findings. Review of Lyme testing is negative and I discussed this case extensively with the inpatient hospitalist, will pursue prolactin level as well as HIV testing after permission is obtained from the patient. MDM - Seizure Lab Data Result diagrams: 11/25/21 23:19 11/25/21 23:19 Labs: Lab Results 11/25/21 11/25/21 11/25/21 Range/Units 23:19 23:19 23:19 WBC 4.1 L (4.8-10.8) X10*3/uL RBC 3.34 L (4.20-5.50) X10*6/uL Hgb 10.6 L (12.0-16.0) g/dl Hct 32.8 L (37.0-47.0) % MCV 98.2 H (80.0-98.0) fL MCH 31.7 (27.0-33.0) pg MCHC 32.3 (31.0-35.0) g/dl RDW 12.7 (11.0-16.0) % Plt Count 189 (160-400) X10*3/uL MPV 9.5 (9.4-12.3) fL Immature Gran % (Auto) 0.2 (0.0-0.4) % Neut % (Auto) 54.6 (45-73) % Lymph % (Auto) 36.9 (20-40) % [place] % (Auto) 6.6 (2-11) % Eos % (Auto) 1.5 (0-4) % Baso % (Auto) 0.2 (0-2) % Lymph # (Auto) 1.5 (1.2-4.9) X10*3/uL [place] # (Auto) 0.3 (0.1-1.2) X10*3/uL Eos # (Auto) 0.1 (0.0-0.4) X10*3/uL Baso # (Auto) 0.0 (0.0-0.2) X10*3/uL Abs Immat Gran (auto) 0.01 (0.00-0.03) X10*3/uL Absolute Neuts (auto) 2.2 (2.0-8.3) x10*3/uL Absolute Nucleated RBC 0.000 (0.0-0.012) X10*3/uL Nucleated RBC % (auto) 0.0 (0.0-0.2) /100WBC ESR (0-20) MM/HR PT (9.9-13.0) SEC INR (0.9-1.1) APTT (24.1-38.0) SEC Sodium 137 (135-145) mmol/L Potassium 3.9 (3.3-5.1) mmol/L Chloride 109 H (96-108) mmol/L Carbon Dioxide 21 L (22-29) mmol/L Anion Gap 11 L (12-20) BUN 4 L D (9-16) mg/dL Creatinine 0.82 (0.5-1.4) mg/dL Estim Creat Clear Calc 102.5 Estimated GFR > 60 Random Glucose 102 (60-115) mg/dL Calcium 8.0 L D (8.4-10.2) mg/dL Magnesium 1.9 (1.6-2.6) mg/dL Total Bilirubin 0.3 (0.0-1.0) mg/dL AST 20 (5-31) U/L ALT 18 (0-31) U/L Alkaline Phosphatase 61 (39-117) U/L C-Reactive Protein 0.04 (< or = 0.50) mg/dL Total Protein 5.3 L (6.5-8.0) g/dL Albumin 3.5 D (3.5-5.0) g/dL Beta HCG, Quant < 2 mIU/mL Urine Color Urine Appearance Urine pH (5.0-8.0) Ur Specific Dix (1.005-1.025) Urine Protein (NEG-TRACE) MG/DL Urine Glucose (UA) (NEG) MG/DL Urine Ketones (NEG) MG/DL Urine Blood (NEG) Urine Nitrite (NEG) Ur Leukocyte Esterase (NEG) Salicylates < 5.0 L (15-30) mg/dL Urine Opiates Screen (Not Detect) Urine Fentanyl Screen (Not Detect) Acetaminophen < 1 (<30) mcg/mL Ur Barbiturates Screen (Not Detect) Ur Phencyclidine Scrn (Not Detect) Ur Amphetamines Screen (Not Detect) U Benzodiazepines Scrn (Not Detect) Urine Cocaine Screen (Not Detect) U Marijuana (THC) Screen (Not Detect) Ethyl Alcohol mg/dL COVID-19 ([facility]ARISTO) (Negative) COVID-19 Clin Com Influenza Type A (ASHVIN) Negative (Negative) Influenza Type B (ASHVIN) Negative (Negative) Influenza A & B Note See Note 11/25/21 11/25/21 11/25/21 Range/Units 23:19 23:19 23:19 WBC (4.8-10.8) X10*3/uL RBC (4.20-5.50) X10*6/uL Hgb (12.0-16.0) g/dl Hct (37.0-47.0) % MCV (80.0-98.0) fL MCH (27.0-33.0) pg MCHC (31.0-35.0) g/dl RDW (11.0-16.0) % Plt Count (160-400) X10*3/uL MPV (9.4-12.3) fL Immature Gran % (Auto) (0.0-0.4) % Neut % (Auto) (45-73) % Lymph % (Auto) (20-40) % [place] % (Auto) (2-11) % Eos % (Auto) (0-4) % Baso % (Auto) (0-2) % Lymph # (Auto) (1.2-4.9) X10*3/uL [place] # (Auto) (0.1-1.2) X10*3/uL Eos # (Auto) (0.0-0.4) X10*3/uL Baso # (Auto) (0.0-0.2) X10*3/uL Abs Immat Gran (auto) (0.00-0.03) X10*3/uL Absolute Neuts (auto) (2.0-8.3) x10*3/uL Absolute Nucleated RBC (0.0-0.012) X10*3/uL Nucleated RBC % (auto) (0.0-0.2) /100WBC ESR 5 (0-20) MM/HR PT (9.9-13.0) SEC INR (0.9-1.1) APTT (24.1-38.0) SEC Sodium (135-145) mmol/L Potassium (3.3-5.1) mmol/L Chloride (96-108) mmol/L Carbon Dioxide (22-29) mmol/L Anion Gap (12-20) BUN (9-16) mg/dL Creatinine (0.5-1.4) mg/dL Estim Creat Clear Calc Estimated GFR Random Glucose (60-115) mg/dL Calcium (8.4-10.2) mg/dL Magnesium (1.6-2.6) mg/dL Total Bilirubin (0.0-1.0) mg/dL AST (5-31) U/L ALT (0-31) U/L Alkaline Phosphatase (39-117) U/L C-Reactive Protein (< or = 0.50) mg/dL Total Protein (6.5-8.0) g/dL Albumin (3.5-5.0) g/dL Beta HCG, Quant mIU/mL Urine Color Urine Appearance Urine pH (5.0-8.0) Ur Specific Dix (1.005-1.025) Urine Protein (NEG-TRACE) MG/DL Urine Glucose (UA) (NEG) MG/DL Urine Ketones (NEG) MG/DL Urine Blood (NEG) Urine Nitrite (NEG) Ur Leukocyte Esterase (NEG) Salicylates (15-30) mg/dL Urine Opiates Screen (Not Detect) Urine Fentanyl Screen (Not Detect) Acetaminophen (<30) mcg/mL Ur Barbiturates Screen (Not Detect) Ur Phencyclidine Scrn (Not Detect) Ur Amphetamines Screen (Not Detect) U Benzodiazepines Scrn (Not Detect) Urine Cocaine Screen (Not Detect) U Marijuana (THC) Screen (Not Detect) Ethyl Alcohol < 10 mg/dL COVID-19 (EVARISTO) Negative (Negative) COVID-19 Clin Com See Note Influenza Type A (ASHVIN) (Negative) Influenza Type B (ASHVIN) (Negative) Influenza A & B Note 11/26/21 11/26/21 11/26/21 Range/Units 00:24 00:24 00:24 WBC (4.8-10.8) X10*3/uL RBC (4.20-5.50) X10*6/uL Hgb (12.0-16.0) g/dl Hct (37.0-47.0) % MCV (80.0-98.0) fL MCH (27.0-33.0) pg MCHC (31.0-35.0) g/dl RDW (11.0-16.0) % Plt Count (160-400) X10*3/uL MPV (9.4-12.3) fL Immature Gran % (Auto) (0.0-0.4) % Neut % (Auto) (45-73) % Lymph % (Auto) (20-40) % [place] % (Auto) (2-11) % Eos % (Auto) (0-4) % Baso % (Auto) (0-2) % Lymph # (Auto) (1.2-4.9) X10*3/uL [place] # (Auto) (0.1-1.2) X10*3/uL Eos # (Auto) (0.0-0.4) X10*3/uL Baso # (Auto) (0.0-0.2) X10*3/uL Abs Immat Gran (auto) (0.00-0.03) X10*3/uL Absolute Neuts (auto) (2.0-8.3) x10*3/uL Absolute Nucleated RBC (0.0-0.012) X10*3/uL Nucleated RBC % (auto) (0.0-0.2) /100WBC ESR (0-20) MM/HR PT 13.0 (9.9-13.0) SEC INR 1.1 (0.9-1.1) APTT 37.0 (24.1-38.0) SEC Sodium (135-145) mmol/L Potassium (3.3-5.1) mmol/L Chloride (96-108) mmol/L Carbon Dioxide (22-29) mmol/L Anion Gap (12-20) BUN (9-16) mg/dL Creatinine (0.5-1.4) mg/dL Estim Creat Clear Calc Estimated GFR Random Glucose (60-115) mg/dL Calcium (8.4-10.2) mg/dL Magnesium (1.6-2.6) mg/dL Total Bilirubin (0.0-1.0) mg/dL AST (5-31) U/L ALT (0-31) U/L Alkaline Phosphatase (39-117) U/L C-Reactive Protein (< or = 0.50) mg/dL Total Protein (6.5-8.0) g/dL Albumin (3.5-5.0) g/dL Beta HCG, Quant mIU/mL Urine Color YELLOW Urine Appearance CLEAR Urine pH 6.0 (5.0-8.0) Ur Specific Dix 1.015 (1.005-1.025) Urine Protein NEG (NEG-TRACE) MG/DL Urine Glucose (UA) NEG (NEG) MG/DL Urine Ketones NEG (NEG) MG/DL Urine Blood NEG (NEG) Urine Nitrite NEG (NEG) Ur Leukocyte Esterase NEG (NEG) Salicylates (15-30) mg/dL Urine Opiates Screen Not Detected (Not Detect) Urine Fentanyl Screen POSITIVE H (Not Detect) Acetaminophen (<30) mcg/mL Ur Barbiturates Screen Not Detected (Not Detect) Ur Phencyclidine Scrn Not Detected (Not Detect) Ur Amphetamines Screen Not Detected (Not Detect) U Benzodiazepines Scrn POSITIVE H (Not Detect) Urine Cocaine Screen Not Detected (Not Detect) U Marijuana (THC) Screen POSITIVE H (Not Detect) Ethyl Alcohol mg/dL COVID-19 ([facility]ISTO) (Negative) COVID-19 Clin Com Influenza Type A (ASHVIN) (Negative) Influenza Type B (ASHVIN) (Negative) Influenza A & B Note ECG Data Attestation: I personally reviewed and interpreted this ECG as follows: Prior ECG tracings: available for review Interpretation: Sinus tachycardia, HR- 103, no STEMI, MI / QRS are within normal limits and QTC is noted be 505 Discharge Plan Discharge Clinical Impression: Seizure-like activity, POTS (postural orthostatic tachycardia syndrome), Brain lesion, History of COVID-19, Bipolar 1 disorder Patient Disposition: Admitted As Inpatient Prescriptions: No Action gabapentin 400 mg capsule 400 mg PO TID 90 Days Qty: 270 3RF atenolol 25 mg tablet 25 mg PO BID 90 Days Qty: 135 3RF Rx Instructions: TAKE 1 TABLET IN THE MORNING AND 1/2 TABLET IN THE NIGHT escitalopram oxalate [Lexapro] 20 mg tablet 20 mg PO DAILY 90 Days Qty: 90 2RF trazodone 50 mg tablet 50 mg PO BEDTIME PRN (Reason: sleep) 90 Days Qty: 30 1RF varenicline 1 mg tablet See Rx Instructions PO BID 28 Days Qty: 56 1RF Rx Instructions: Start 0.5mg PO daily x 3 days then 0.5mg PO BID x 4 days then 1mg PO BID PO 2 times a day; quetiapine [Seroquel] 50 mg tablet 50 mg PO BEDTIME Qty: 30 1RF
[2021-11-26 00:17] LABS: C Reactive Protein 0.04 mg/dL (< or = 0.50); Magnesium 1.9 mg/dL (1.6-2.6)
[2021-11-26 00:24] LABS: HCG Quantitative < 2 mIU/mL
[2021-11-26 00:38] LABS: Appearance Urine CLEAR; Color Urine YELLOW; Glucose Urine UA NEG (NEG); Leukocyte Esterase Urine NEG (NEG); Nitrite Urine NEG (NEG); Specific Gravity - Urine 1.015 (1.005-1.025); Urine Blood NEG (NEG); Urine Ketones NEG (NEG); Urine Protein NEG (NEG-TRACE)
[2021-11-26 00:42] LABS: Erythrocyte Sedimentation Rate 5 MM/HR (0-20)
[2021-11-26 00:43] LABS: INTERNATIONAL NORM RATIO 1.1 (0.9-1.1)
[2021-11-26 00:48] LABS: Amphetamine Screen Urine Not Detected (Not Detect); Barbiturates, Urine Not Detected (Not Detect); Benzodiazepines Screen Urine POSITIVE (Not Detect); Cannabinoid Screen Urine POSITIVE (Not Detect); Cocaine Screen Urine Not Detected (Not Detect); Fentanyl, urine POSITIVE (Not Detect); Opiate Screen Urine Not Detected (Not Detect); Phencyclidine Screen Urine Not Detected (Not Detect)
[2021-11-26 01:09] LABS: Acetaminophen LAB < 1 mcg/mL (<30); Salicylate < 5.0 mg/dL (15-30)
[2021-11-26] MEDS: 0.9 % Sodium Chloride 1,000 ML 999 ML IV ×2 (01:30→10:38)
[2021-11-26] MEDS: iohexoL 350 MG/ML 100 ML INFUS..BTL 70 ML IV (02:40)
--- NOTE | 2021-11-26 04:28 | PC.NURSE ---
pt asked if it was ok for use to obtain a hiv result and pt stated yes it is ok to draw a hiv test. dr villanueva made aware.
--- NOTE | 2021-11-26 07:40 | PC.NURSE ---
pt c/o chest pressure radiating into her back. dr. villanueva aware.
--- NOTE | 2021-11-26 07:42 | ECG_ITS ---
Test Reason : CHEST PRESSURE Blood Pressure : / mmHG Vent. Rate : 098 BPM Atrial Rate : 098 BPM P-R Int : 132 ms QRS Dur : 094 ms QT Int : 392 ms P-R-T Axes : 081 055 068 degrees QTc Int : 500 ms Normal sinus rhythm Possible Left atrial enlargement Prolonged QT Abnormal ECG When compared with ECG of 25-NOV-2021 22:50, No significant change was found Referred By: Raegan Rae Electronically Signed By:Johnathon Melgoza
[2021-11-26 08:17] LABS: Troponin-I High Sensitivity < 3.5 ng/L (<3.5-17.0)
--- NOTE | 2021-11-26 10:10 | PHA.MEDREC ---
Pharmacy Consult ? Medication Reconciliation Pharmacy has completed the medication reconciliation. spoke with patient. Reports she moved here months ago and has not found local doctors to prescribe her lamictal. She also was without her lexapro and seroquel for 2 months but was recently prescribed them again. Says her midodrine and lamictal are very important and needs them.
--- NOTE | 2021-11-26 10:15 | PC.NURSE ---
PT WAS UNABLE TO DO THE STANDING IN ORTHO VS. PT C/O DIZZINESS, C/O FREDERICK LEG HEAVINESS AND TREMOLOUS, PT WAS LOWERED TO THE BED. PT WITHIN 2 MINS OF BEING LOWERED ONTO BECAME RESPONSIVE SPEAKING WITH PROVIDERS DRS. SANDOVAL AND ALYSON AT BEDSIDE.
[2021-11-26] MEDS: Midodrine HCl 10 MG TABLET PO ×2 (10:38→15:33)
[2021-11-26] MEDS: Gabapentin 400 MG CAPSULE PO ×2 (10:39→15:33)
[2021-11-26] MEDS: lamoTRIgine 25 MG TABLET 50 MG PO (10:39)
[2021-11-26] MEDS: Escitalopram Oxalate 20 MG TABLET PO (10:39)
[2021-11-26] MEDS: atenoloL 25 MG TABLET 12.5 MG PO (10:39)
--- NOTE | 2021-11-26 11:08 | PC.NURSE ---
dr. cole at pt's bedside. pt/ (at bedside) aware of plan of care.
--- NOTE | 2021-11-26 11:24 | P.CNNE_ITS ---
History of Present Illness Data of Consult Service Date: 11/26/21 Primary Care Provider: Unknown Physician HPI Reason for consult: Seizure disorder 36 years old woman who used to work as a nurse regionally from [facility] moved to [place] recently. She and her provided her history stating that in 2007 she started having syncopal episodes. They denied that there was any stress or emotional reason for that. She described those symptoms as sudden onset of chest constriction like a boa constrictor with numbness and weakness of feet and legs and then falling down and becoming unresponsive. stated that these episodes of unresponsiveness lasted 10 minutes or more and during that time she was flaccid not responsive. She had investigations done for both seizure disorder and syncope. According to them she also had 24 are EEG during which she had couple of episodes. They also stated that some of the previous episodes including tongue bite. In any case, she was not put on any anti s eizure medicine and was given a diagnosis of POTS and was given beta ruiz and vasopressor. She said that she did better started working and overall episodes were less frequent. More recently she started having different type of episodes. She stated that these episodes started like the previous 1 with same initial feeling but instead of being flaccid her whole body was tensing jerking. made a video of 1 of those episodes which he showed me. She was laying on her left side and her legs and body was jerking. She was unresponsive. She said that she could hear people but could not respond. According to , this episode lasted more than 6 minutes. In emergency room she had 1 episode witnessed by emergency room physician which included body jerking and unresponsiveness. Further description of that event is described in the notes. She recently had a brain MRI that revealed some abnormalities and she was very concerned that she might have MS. When asked if she was under stress, she said that there was no significant reason for stressor her life was good. When asked if her was having an affair, he said no but she said yes for a year. I avoided further questioning in this and was not sure if she suggested that she was having an affair he was having an affair. They denied any problem with the children. Her mother suffered from bipolar disorder. 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 [facility] Past Medical History Medical History (Updated 11/26/21 @ 11:37 by Tico Anderson MD) Anxiety and depression Bipolar 1 disorder Fibromyalgia History of COVID-19 POTS (postural orthostatic tachycardia syndrome) Raynaud disease SARS-CoV-2 positive Surgical History Surgical History No pertinent past surgical history Social History Social History Housing: House Alcohol intake: never Patient Tobacco Use Status: Never used Tobacco Cigarettes Per Day: 15 Use of substances other than those prescribed or required for medical reasons: No Advance Directives: No Patient : No Current occupational status: unemployed Meds Allergies Allergy/AdvReac Type Severity Reaction Status Date / Time Sulfa (Sulfonamide Allergy HIVES Verified 08/11/21 13:55 Antibiotics) Active Medications: Current Medications Atenolol (Atenolol 25 Mg Tablet) 12.5 mg PO DAILY [facility]; Protocol Last Admin: 11/26/21 10:39 Dose: 12.5 mg Documented by: Atenolol (Atenolol 25 Mg Tablet) 25 mg PO BEDTIME [facility]; Protocol Escitalopram Oxalate (Escitalopram Oxalate 20 Mg Tablet) 20 mg PO DAILY [facility] Last Admin: 11/26/21 10:39 Dose: 20 mg Documented by: Gabapentin (Gabapentin 400 Mg Capsule) 400 mg PO TID [facility] Last Admin: 11/26/21 10:39 Dose: 400 mg Documented by: Lamotrigine (Lamotrigine 25 Mg Tablet) 50 mg PO DAILY [facility] Last Admin: 11/26/21 10:39 Dose: 50 mg Documented by: Midodrine (Midodrine Hcl 10 Mg Tablet) 10 mg PO TID [facility] Non-Formulary Medication (Varenicline) 1 mg PO BID [facility] Pharmacy Consult (Consult Rx Perform Med Rec) 1 each MISCELLANE ONCE PRN PRN Reason: Consult order Prazosin HCl (Prazosin Hcl 1 Mg Capsule) 2 mg PO BEDTIME [facility]; Protocol Quetiapine Fumarate (Quetiapine Fumarate 100 Mg Tablet) 100 mg PO BEDTIME JEANNETTE Trazodone HCl (Trazodone Hcl 50 Mg Tablet) 50 mg PO BEDTIME PRN PRN Reason: sleep Home Medications Medication Instructions Recorded Confirmed Last Taken Type atenolol 25 mg tablet 12.5 mg PO DAILY 11/26/21 11/26/21 11/25/21 History atenolol 25 mg tablet 25 mg PO BEDTIME 11/26/21 11/26/21 11/25/21 History lamotrigine 25 mg tablet (Lamictal) 50 mg PO DAILY 11/26/21 11/26/21 Unknown History midodrine 10 mg tablet 10 mg PO TID 11/26/21 11/26/21 11/25/21 History prazosin 1 mg capsule 2 mg PO BEDTIME 11/26/21 11/26/21 11/25/21 History quetiapine 50 mg tablet (Seroquel) 100 mg PO BEDTIME 11/26/21 11/26/21 Unknown History varenicline 1 mg tablet 1 mg PO BID 11/26/21 11/26/21 11/25/21 History Physical Exam Vital Signs: Vital Signs: Last Vital Signs Temp 97.8 F 11/26/21 10:36 Pulse 85 11/26/21 10:36 Resp 14 11/26/21 10:36 BP 125/87 11/26/21 10:36 Pulse Ox 100 11/26/21 10:36 BMI result Body Mass Index 25.0 Neuro: Other: Alert and awake with normal spontaneity of speech fluency comprehension and slightly manic affect. Face was symmetrical. Pupils were round reactive to light. There was no focal weakness. Deep tendon reflexes were slightly on the brisk side with flexor plantar. Speech was normal Results Labs CBC & Chem 7: 11/25/21 23:19 11/25/21 23:19 Labs: Short CBC 11/25/21 Range/Units 23:19 WBC 4.1 L (4.8-10.8) X10*3/uL Hgb 10.6 L (12.0-16.0) g/dl Hct 32.8 L (37.0-47.0) % Plt Count 189 (160-400) X10*3/uL BMP 11/25/21 23:19 Sodium 137 Potassium 3.9 Chloride 109 H Carbon Dioxide 21 L BUN 4 L D Creatinine 0.82 Calcium 8.0 L D Liver Function 11/25/21 Range/Units 23:19 Total Bilirubin 0.3 (0.0-1.0) mg/dL AST 20 (5-31) U/L ALT 18 (0-31) U/L Alkaline Phosphatase 61 (39-117) U/L Albumin 3.5 D (3.5-5.0) g/dL Urine 11/26/21 Range/Units 00:24 Urine Color YELLOW Urine Appearance CLEAR Urine pH 6.0 (5.0-8.0) Ur Specific [place] 1.015 (1.005-1.025) Urine Protein NEG (NEG-TRACE) MG/DL Urine Glucose (UA) NEG (NEG) MG/DL Her MRI of brain revealed few bilateral signal abnormalities that would not typical of demyelinating disease. Differential diagnosis of this type of abnormality was large including any condition that could cause microvascular disease, autoimmune conditions, or even atypical case of demyelinating disease. CT without contrast was okay per other than mild hypodensity in right frontal white matter. CTA of brain and neck did not reveal any significant vascular pathology. Labs done at [facility] reveal sed rate of 4, CRP was 16, CBC and metabolic profile were okay. MICHAEL was negative. Assessment and Plan (1) Encephalopathy chronic: Status: Acute 36 years old woman with complex underlying medical and neuropsychiatric history. She has familial tendency for mental disorder with her mother with bipolar disorder. There probably are psychological stresses which a counselor or a psychiatrist should explore. Her drug screen is positive for marijuana and fentanyl suggesting tendency for drug use, which can also create atypical encephalopathy. She was diagnosed with POTS and has been taking medicines for that. She had multiple syncopal type or seizure-like episodes for number of years, which have been investigated in [facility]. I reviewed the video provided by her and the description of the episode she had, I agree that there is high suspicion for nonepileptic spells well epilepsy cannot be completely ruled out at this time. Even her previous description of syncopal episodes when she was unresponsive flat on the ground for 10 or more minutes, was odd if the diagnosis was Pots related syncope. Finally her brain MRI reveals signal abnormalities that are not trivial but do not present a clear diagnosis either. My recommendation at this time is to obtain sample spinal fluid to see if there was any sign of activity or abnormality suggestive of atypical encephalitis or demyelinating disease. She should be strongly advised to not use any drug abuse. A psychiatric consultation is in order. An EEG is also recommended. I also recommend testing for syphilis and HIV. Procedures Date of Service Date of Service: 11/26/21
--- NOTE | 2021-11-26 12:49 | PC.NURSE ---
spinal tap by dr. perez is being done at this time.
[2021-11-26 13:07] LABS: Oligoclonal Serum Yes
[2021-11-26 13:35] LABS: CSF Appearance Clear, Colorless; CSF Tube # 2
[2021-11-26 13:49] LABS: Appearance CSF CLEAR; CSF Tube # 1; Color CSF COLORLESS; Red Blood Cell CSF 10 MM*3; White Blood Cell CSF 0 MM*3
[2021-11-26 13:50] LABS: Appearance CSF CLEAR; CSF Tube # 4; Color CSF COLORLESS; Red Blood Cell CSF 0 MM*3; White Blood Cell CSF 0 MM*3
[2021-11-26 13:57] LABS: Glucose CSF 56 mg/dL; Total Protein CSF 23.2 mg/dL (15-45)
[2021-11-26 15:16] LABS: Cryptococcus neoformans/gattii Not Detected (Not Detect.); Enterovirus Not Detected (Not Detect.); Escherichia coli K1 Not Detected (Not Detect.); Haemophilus influenzae Not Detected (Not Detect.); Herpes simplex virus 1 Not Detected (Not Detect.); Herpes simplex virus 2 Not Detected (Not Detect.); Human herpesvirus 6 Not Detected (Not Detect.); Human parechovirus Not Detected (Not Detect.); Listeria monocytogenes Not Detected (Not Detect.); Neisseria meningitidis Not Detected (Not Detect.); Streptococcus agalactiae Not Detected (Not Detect.); Streptococcus pneumoniae Not Detected (Not Detect.); Varicella zoster virus Not Detected (Not Detect.)
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
[2021-11-28 07:44] LABS: HIV AB/AG Nonreactive (Nonreactive); HIV Num 1 0.09 S/CO (0.00-0.99)
[2021-11-28 07:56] LABS: Syphilis Screen Nonreactive (Nonreactive)
[2021-11-28 10:12] LABS: Prolactin 10.1 ng/mL
[2021-11-28 21:36] LABS: Lyme (B. burgdorferi) PCR NOT DETECTED (NOT DETECTED); Lyme PCR Source NOT GIVEN
[2021-11-29 16:47] LABS: Albumin, CSF 13.2 mg/dL (8.0-42.0); IgG 556 mg/dL (600-1640); IgG Synthesis Rate -1.3 mg/24 h (-9.9-3.3)
== END 2021-11-26 15:53 | disposition still patient (30) ==
PROVIDERS: Emergency Medicine; Emergency Provider Student in an Organized Health Care Education/Training Program
DX: R56.9 Unspecified convulsions (principal); I49.8 Other specified cardiac arrhythmias; F31.9 Bipolar disorder, unspecified; F17.210 Nicotine dependence, cigarettes, uncomplicated; Z20.822 Contact with and (suspected) exposure to COVID-19; Z71.6 Tobacco abuse counseling; Z79.899 Other long term (current) drug therapy
CPT/HCPCS: 36415; 70496; 70498; 80053; 80143; 80179; 80307; 81003; 82042; 82077; 82945; 83735; 83916; 84146; 84157; 84484; 84702; 85025; 85610; 85652; 85730; 86140; 86335; 86780; 87015; 87070; 87205; 87389; 87476; 87483; 87502; 87635; 89051; 93005; 96360; 96361; 99285; Q9967

== ENCOUNTER 2022-01-18 11:45 | Outpatient (REF) | payer OTHER, SELFPAY ==
[2022-01-18 14:07] LABS: Anion Gap 12 (12-20); Blood Urea Nitrogen 11 mg/dL (9-16); Calcium 9.5 mg/dL (8.4-10.2); Carbon Dioxide 21 mmol/L (22-29); Chloride 108 mmol/L (96-108); Estimated Glomerular Filt Rate > 60; Glucose Random 89 mg/dL (60-115); Potassium 4.2 mmol/L (3.3-5.1); Sodium 137 mmol/L (135-145)
[2022-01-20 14:41] LABS: CRP High Sensitivity 0.8 mg/L
== END 2022-01-18 11:46 | disposition home or self-care (01) ==
LOC: HO.WFDLDS 11:45
PROVIDERS: Visit Provider Family Medicine
DX: Z00.00 Encounter for general adult medical examination without abnormal findings (principal); R79.82 Elevated C-reactive protein (CRP)
CPT/HCPCS: 36415; 80048; 86141

== ENCOUNTER 2022-03-13 14:51 | Outpatient (REF) | payer OTHER, SELFPAY ==
--- NOTE | ~2022-03-13 | XR_ITS ---
EXAMINATION: XR WRIST, LEFT CLINICAL INFORMATION: Pain COMPARISON: None TECHNIQUE: PA, lateral, and oblique views of the left wrist. FINDINGS: The bones and soft tissues are normal. No fracture. Alignment is anatomic with normal joint spaces. No erosions or abnormal soft tissue calcifications. XR/XR wrist LT min 3V IMPRESSION: Normal left wrist.
== END 2022-03-13 14:52 | disposition home or self-care (01) ==
LOC: HO.HMGCX 14:51
PROVIDERS: PCP Family Medicine; Visit Provider Physician Assistant
DX: M25.532 Pain in left wrist (principal)
CPT/HCPCS: 73110

== ENCOUNTER → 2022-03-23 13:47 | Outpatient (REF) | payer OTHER, SELFPAY ==
--- NOTE | 2022-03-23 14:10 | CA_ITS ---
Transthoracic Echocardiogram Patient (Last, First, Middle): Carey Gibbs, Gender: Female Date of : 1985 Age: 36 Procedure Date: 03/23/2022 Procedure Type: Transthoracic Echocardiogram Location: OP Height: 177.8 cm Weight: 71.67 kg BSA: 1.89 m2 Heart Rate: 80 bpm BP: 110 / 69 mmHg [employer] Manager: VINCE Referring MD: Dawood Puente MD Symptoms: I49.8 - Other specified cardiac arrhythmias Study Quality: Adequate ECG Rhythm: Sinus Conclusions: - The left ventricular systolic function is normal. The calculated ejection fraction is 63% by biplane method. - No obvious valvular pathology seen on this study. Findings Left Ventricle Normal left ventricular cavity size. There is normal left ventricular wall thickness. The left ventricular systolic function is normal. The calculated ejection fraction is 63% by biplane method. There is no evidence of regional wall motion abnormalities. Diastolic function is normal for age. Right Ventricle Normal right ventricular cavity size and systolic function. Atria Both atria are normal in size. Aortic Valve The aortic valve structure and function is likely normal. There is no aortic valve stenosis. There is no aortic valve regurgitation. Mitral Valve The mitral valve appears normal. There is trace mitral valve regurgitation. There is no mitral valve stenosis. Pulmonic Valve The pulmonic valve is likely normal. Tricuspid Valve Normal tricuspid valve structure. There is mild tricuspid valve regurgitation. There is no evidence of pulmonary hypertension. Great Vessels The aortic annulus, sinuses of valsalva, and asc aorta are normal in size. Venous The inferior vena cava is normal in size and collapses greater than 50% with inspiration. Pericardium/Pleural There is no evidence of pericardial effusion. Prior Study Comparison No prior study available for comparison. Recommendations, Care & Conclusions No obvious valvular pathology seen on this study. Measurements 2D Linear Measurements IVSd: 0.81 0.6-0.9/0.6-1.0 cm LVIDd: 5.17 3.9-5.3/4.2-5.9 cm LVIDd Index: 2.74 2.4-3.2/2.2-3.1 cm/m2 LVIDs: 3.09 2.0-3.6 cm LVPWd: 0.63 0.7-1.1 cm LA Diam: 3.60 2.7-3.8/3.0-4.0 cm LAIDs Index: 1.90 1.5-2.3 cm/m2 LV Mass: 155.55 67-162/88-224 g LV Mass Index: 82.30 43-95/49-115 g/m2 LVOT Diam: 2.00 3.0+(-)1.3 cm 2D Systolic Function EF 4C: 68.90 >55% EF 2C: 57.50 >55% EF BiP: 62.80 >55% Mitral Valve MV Pk E: 0.95 MV PK A: 0.54 MV Decel Time: 199.00 E/A: 1.80 E'Lateral: 18.60 E'Medial: 12.80 E/E' Med: 7.40 E/E' Lat: 5.10 PHT: 58.00 MVA PHT: 3.79 Decel [place]: 4.80 Aortic Valve AoV Pk Inderjit: 1.57 AoV Mn Inderjit: 1.12 AoV VTI: 0.34 AoV Pk Grad: 10.00 Aov Mn Grad: 6.00 AMAURI Cont.VTI: 2.46 LVOT LVOT Pk Inderjit: 1.14 LVOT Mn Inderjit: 0.77 LVOT VTI: 0.26 LVOT Pk Grad: 5.00 LVOT Mn Grad: 3.00 LVOT Diam: 2.00 LVOT Area: 3.14 Diastolic Function MV Pk E: 0.95 MV Pk A: 0.54 E/A: 1.80 E'Medial: 12.80 E/E' Med: 7.40 E' Laterial: 18.60 E/E' Lat: 5.10 Right Ventricle TAPSE (mm): 31.50 TVS' Inderjit: 14.00 Tricuspid Valve TR Pk Inderjit: 2.64 TR Pk Grad: 28.00 RA Press: 3.00 RVSP: 31.00 Great Vessels Aorta Sinus of Valsalva: 2.78 2.0-3.5 cm Ao Asc: 2.70 2.1-3.4 cm Updated in Other Vendor System with Status of Final Dawood Punete MD electronically signed on 03/25/2022 10:49:43 AM with status of Final
== END ==
LOC: HO.CARD 13:47
PROVIDERS: PCP Family Medicine; Visit Provider Internal Medicine
DX: I49.8 Other specified cardiac arrhythmias (principal)
CPT/HCPCS: 93306

== ENCOUNTER 2022-05-03 09:28 | Outpatient (REF) | payer OTHER, SELFPAY ==
--- NOTE | ~2022-05-03 | XR_ITS ---
EXAMINATION: XR WRIST, LEFT CLINICAL INFORMATION: Pain COMPARISON: Previous x-ray March 2022 TECHNIQUE: PA, lateral, and oblique views of the left wrist. FINDINGS: The bones and soft tissues are normal. No fracture. Alignment is anatomic with normal joint spaces. No erosions or abnormal soft tissue calcifications. XR/XR wrist LT min 3V IMPRESSION: Normal left wrist.
== END 2022-05-03 09:29 | disposition home or self-care (01) ==
LOC: HO.HOSX 09:28
PROVIDERS: Visit Provider Orthopaedic Surgery
DX: M25.532 Pain in left wrist (principal)
CPT/HCPCS: 73110

== ENCOUNTER 2022-06-15 09:54 | Outpatient (REF) | payer OTHER, SELFPAY ==
[2022-06-15 14:02] LABS: MANUAL DIFF FLAG NO
[2022-06-15 14:18] LABS: Basophils Percent Auto 0.4 % (0-2); Eosinophils Absolute Auto 0.1 X10*3/uL (0.0-0.4); Eosinophils Percent Auto 1.1 % (0-4); Hematocrit 33.2 % (37.0-47.0); Hemoglobin 10.9 g/dl (12.0-16.0); Imm Gran Abs Auto 0.04 X10*3/uL (0.00-0.03); Imm Gran Pct Auto 0.7 % (0.0-0.4); Lymphocytes Absolute Auto 1.8 X10*3/uL (1.2-4.9); Lymphocytes Percent Auto 32.1 % (20-40); Mean Corpuscular HGB Conc 32.8 g/dl (31.0-35.0); Mean Corpuscular Hemoglobin 30.2 pg (27.0-33.0); Mean Platelet Volume 9.6 fL (9.4-12.3); Monocytes Absolute Auto 0.3 X10*3/uL (0.1-1.2); Monocytes Percent Auto 5.9 % (2-11); Neutrophils Absolute Auto 3.3 x10*3/uL (2.0-8.3); Neutrophils Percent Auto 59.8 % (45-73); Platelet Count 231 X10*3/uL (160-400); Red Blood Count 3.61 X10*6/uL (4.20-5.50); Red Cell Distribution Width 14.1 % (11.0-16.0); White Blood Count 5.5 X10*3/uL (4.8-10.8)
[2022-06-15 14:39] LABS: Alanine Aminotransferase 13 U/L (0-31); Albumin Level 3.7 g/dL (3.5-5.0); Alkaline Phosphatase 65 U/L (39-117); Anion Gap 14 (12-20); Aspartate Amino Transferase 17 U/L (5-31); Bilirubin Total 0.2 mg/dL (0.0-1.0); Blood Urea Nitrogen 5 mg/dL (9-16); Calcium 8.4 mg/dL (8.4-10.2); Carbon Dioxide 18 mmol/L (22-29); Chloride 109 mmol/L (96-108); Cholesterol 219 mg/dL; Estimated Glomerular Filt Rate > 60; Glucose Random 63 mg/dL (60-115); HDL Cholesterol 76 mg/dL; LDL Cholesterol Calculated 127 mg/dl; Sodium 137 mmol/L (135-145); Triglycerides 84 mg/dL
[2022-06-15 14:49] LABS: TSH reflex Free T4 0.77 uIU/mL (0.32-4.0)
== END 2022-06-15 09:55 | disposition home or self-care (01) ==
LOC: HO.WFDLDS 09:54
PROVIDERS: Visit Provider Family Medicine
DX: Z00.00 Encounter for general adult medical examination without abnormal findings (principal); I49.8 Other specified cardiac arrhythmias
CPT/HCPCS: 36415; 80053; 80061; 84443; 85025

== ENCOUNTER 2023-03-09 10:25 | Outpatient (AMB) | payer OTHER, SELFPAY ==
[2023-03-09 10:50] VITALS: BP 118/72; PULSE 107; RESP 12; TEMP 36.5; O2SAT 99; BMI 21.5
--- NOTE | 2023-03-09 10:50 | AM.OFFWIN_ITS ---
Intake Vital Signs 03/09/23 10:50 Height 5 ft 10 in Weight 150 lb BMI 21.5 BP 118/72 Blood Pressure Location Lt brachial Position Sitting Respiration 12 Pulse 107 H Pulse Source Pulse Oximeter Temp 97.7 F Temp Source Temporal Artery Scan Pulse Oximetry (%) 99 Oxygen Delivery Method Room Air Intake Visit Reasons: rash Intake Note: Patient states that her rash is located on her lower back. Patient states she noticed it yesterday. Patient states that it itches and paulino. Patient Tobacco Use Status: Former Tobacco user Paper Roller Required: No Accompanied by: Son Allergies Sulfa (Sulfonamide Antibiotics) Allergy (Verified 03/09/23 11:21) HIVES Medication List - Last Reconciled 03/09/23 by Lu Jordan CNP atenolol 1 tablet in the morning, 1/2 tablet in the evening orally daily; escitalopram oxalate (Lexapro) 20 mg PO DAILY 90 days gabapentin 400 mg PO TID 90 days lamotrigine (Lamictal) 50 mg PO DAILY lorazepam 0.5 mg PO DAILY PRN 30 days midodrine 10 mg PO TID 30 days prazosin 2 mg (2 x 1 mg) PO BEDTIME 90 days quetiapine (Seroquel) 150 mg (3 x 50 mg) PO BEDTIME 90 days trazodone 50 mg PO BEDTIME PRN 90 days Do you need a note to return to daycare/school/sports/work: No HPI HPI Comments History of Present Illness Details 37-year-old female presents with complaints of a rash. She states she noticed the rash on her lower back yesterday. She reports itchy and burning sensation. No fever, chills, body aches, fatigue, or weakness. [facility] Medical History Anxiety and depression Bipolar 1 disorder Bipolar disorder Fibromyalgia History of COVID-19 POTS (postural orthostatic tachycardia syndrome) PTSD (post-traumatic stress disorder) Raynaud disease SARS-CoV-2 positive Surgical History No pertinent past surgical history Family History Father Heart attack Mother No problems noted. Social History Housing: House Alcohol intake: never Patient Tobacco Use Status: Former Tobacco user Cigarettes Per Day: 15 e-Cigarette/Vaping Use: Never Used Second Hand Smoke Exposure: No service: No Current occupational status: unemployed Current occupational exposures/hazards: No Cognitive needs: No Hearing needs: No Vision needs: No Review of Systems Const Details: Const Denies chills, Denies fatigue, Denies fever(s), Denies headache(s) and Denies weakness ENT Denies change in vision, Denies dizziness, Denies headache(s), Denies hearing loss, Denies nasal congestion, Denies sinus pain, Denies sinus pressure and Denies sore throat Resp Denies cough, Denies dyspnea, Denies wheezing and Denies other (shortness of breath) Cardio Denies chest pain, Denies lightheadedness, Denies dyspnea and Denies other (palpitations) Skin Reports as per HPI Neuro Denies dizziness, Denies headache(s), Denies numbness, Denies tingling and Denies weakness Psych Denies anxiety, Denies depression, Denies memory?loss Endo Denies fatigue Aller/Immun Denies wheezing Physical Exam Vital Signs: Last Vital Signs Temp 97.7 F 03/09/23 10:50 Pulse 107 H 03/09/23 10:50 Resp 12 03/09/23 10:50 BP 118/72 03/09/23 10:50 Pulse Ox 99 03/09/23 10:50 Oxygen Delivery Method Room Air 03/09/23 10:50 BMI result Body Mass Index 21.5 Const Other: Const General: well developed; No acute distress Nutritional Appearance: well nourished Orientation/consciousness: patient oriented x3 HEENT Head: Yes normocephalic and Yes atraumatic Eyes General: appearance normal, both eyes and all related structures Pupils: Equal, round and reactive pupils present EOM: EOMs intact bilaterally Resp Effort & Inspection: normal respiratory effort Auscultation: clear to auscultation bilaterally Cardio Rate: regular rate Rhythm: regular rhythm Heart sounds: S1 normal heart sound present, S2 normal heart sound present, no gallops, no murmurs and no rubs Bruits: no abdominal aortic bruits and no carotid bruits Skin General: warm and dry. Normal skin color. Normal skin turgor Lesions: no lesions Rashes: Red, slightly raised rash, with raised area to core, noted to small area on the left side of her lower back, no blisters or drainage, skin is intact Trauma: no lacerations or abrasions Wounds: no wounds Nails: normal Neuro General: patient oriented x3 and gait normal, no focal neuro deficit Cranial nerves: Yes Equal, round and reactive pupils present Psych Affect: normal affect Assessment & Plan Assessment & Plan (1) Urticaria: Code(s): L50.9 - Urticaria, unspecified Plan: Red, slightly raised rash, with raised area to core, noted to small area on the left side of her lower back, no blisters or drainage, skin is intac Likely an antihistamine skin reaction from an insect bite May take Benadryl 50 mg twice a day as needed Return with worsening or new signs and symptoms Verbalized understanding and agreed with the treatment plan. Coding Level of Care Code Est Pt Level 3 (07249) Diagnoses Urticaria L50.9 Time Spent (min) 25
== END 2023-03-09 11:40 | disposition home or self-care (01) ==
PROVIDERS: PCP Family Medicine; Visit Provider Nurse Practitioner Family
DX: L50.9 Urticaria, unspecified (principal)
CPT/HCPCS: 99213